=== PATIENT | male | born 1980 | race Caucasian/White ===

== ENCOUNTER → 2017-04-15 | Outpatient (CLI) | payer OTHER ==
[~2017-04-15] MED LIST: MOTRIN800 MG PO
== END | disposition home or self-care (01) ==
LOC: US 15:25 → EDBD 15:30
DX: I82.4Z1 Acute embolism and thrombosis of unspecified deep veins of right distal lower extremity (principal)

== ENCOUNTER 2019-12-24 16:14 | Inpatient (IN) | payer OTHER ==
[~2019-12-24] VITALS: Ht 185.4 cm; Wt 82.3 kg
[2019-12-24 16:31] VITALS: BP 120/7; BP 120/77
[2019-12-24 17:11] LABS: HEMATOCRIT 38.8 % (42.0-52.0); LYMPH # 0.8 10*3/uL (1.3-4.4); LYMPH % 11.9 % (27.0-41.0); MEAN CELL VOLUME 78.2 fl (80.0-94.0); MEAN CORPUSCULAR HGB CONC 35.8 g/dl (33.0-37.0); MEAN PLATELET VOLUME 10.6 fl (9.6-12.3); MONO # 0.1 10*3/uL (0.1-1.0); MONO % 2.1 % (3.0-9.0); NEUT # 5.8 10*3/uL (2.3-7.9); NEUT % 85.9 % (47.0-73.0); PLATELET COUNT AUTOMATED 287 10*3/uL (130-400); RED BLOOD COUNT 4.96 10*6/uL (4.50-5.90); RED CELL DISTRI WIDTH 12.6 % (0-14.5); WHITE BLOOD COUNT 6.7 10*3/uL (4.8-10.8)
[2019-12-24 17:31] LABS: ALBUMIN 4.3 gm/dl (3.1-4.5); ALKALINE PHOSPHATASE 37 U/L (45-117); BUN 15 mg/dl (7-24); CHLORIDE 110 mmol/L (98-107); CREATININE 0.91 mg/dL (0.70-1.30); POTASSIUM 3.7 mmol/L (3.5-5.1); SGOT/AST 35 IU/L (3-35); SGPT/ALT 55 U/L (12-78); SODIUM 138 mmol/L (136-145); TOTAL PROTEIN 7.8 gm/dL (6.4-8.2)
[2019-12-24 17:32] LABS: TROPONIN I < 0.015 ng/ml (<0.045)
[2019-12-24 18:52] VITALS: BP 118/76
--- NOTE | 2019-12-24 18:52 | NUR ---
A 39, admitted to [facility], under the services of DONAL Stoner DO with a diagnosis of SUSPECTED COVID-19 INFECTION/CHEST PAIN. Chief complaint is MULTIPLE COMPLAINTS. Patient arrived via stretcher from ER. Monitor applied. Initial assessment completed. Vital signs taken and recorded. DONAL STONER DO notified of admission to the unit. Orders received. See assessment for past medical history, medications and allergies. Patient and/or family oriented to unit. visitation policy reviewed. Clothing/patient valuable form completed. CHAS BLAND A
[2019-12-24] MEDS ORDERED: PREDNISONE20 M1 PO (20:26)
[2019-12-24] MEDS ORDERED: VENTOLIN 02.5 MG/3 M INH (20:27)
[2019-12-24] MEDS ORDERED: PROAIR HFA8.5 GM INH (20:27)
--- NOTE | 2019-12-24 22:13 | NUR ---
MESSAGE LEFT WITH TREVOR REGARDING CONSULT. AWAITING CALL BACK.
--- NOTE | 2019-12-24 22:31 | NUR ---
PATIENT IS RESTING IN BED WITH EASY AND REGULAR RESPERS ON ROOM AIR. NO C/O OR S/S OF DISTRESS NOTED AT THIS TIME. WILL CONTINUE TO MONITOR.
[2019-12-24 22:48] LABS: ARTERIAL BLOOD GAS PH 7.409 (7.35-7.45)
--- NOTE | 2019-12-24 22:48 | NUR ---
CONSULT COMPLETE FOR DR. CUEVAS.
[2019-12-25] VITALS: BP 105/65
--- NOTE | 2019-12-25 00:03 | NUR ---
CHART CHECK COMPLETE.
--- NOTE | 2019-12-25 03:37 | NUR ---
INFECTIOUS DISEASE CALLED BACK AND CONSULT COMPLETE.
[2019-12-25 05:35] LABS: ALKALINE PHOSPHATASE 35 U/L (45-117); BUN 17 mg/dl (7-24); CHLORIDE 109 mmol/L (98-107); CPK 75 U/L (39-308); POTASSIUM 3.7 mmol/L (3.5-5.1); SGOT/AST 20 IU/L (3-35); SGPT/ALT 47 U/L (12-78); SODIUM 139 mmol/L (136-145); TOTAL PROTEIN 6.9 gm/dL (6.4-8.2)
[2019-12-25 06:15] LABS: BASO % 0.3 % (0.0-1.0); EOS # 0.1 10*3/uL (0.0-0.4); EOS % 1.1 % (1.0-4.0); HEMATOCRIT 37.5 % (42.0-52.0); LYMPH # 2.6 10*3/uL (1.3-4.4); LYMPH % 36.6 % (27.0-41.0); MEAN CELL VOLUME 80.1 fl (80.0-94.0); MEAN CORPUSCULAR HGB 27.8 pg (27.0-31.0); MEAN CORPUSCULAR HGB CONC 34.7 g/dl (33.0-37.0); MONO # 0.6 10*3/uL (0.1-1.0); NEUT # 3.7 10*3/uL (2.3-7.9); NEUT % 52.9 % (47.0-73.0); PLATELET COUNT AUTOMATED 268 10*3/uL (130-400); RED BLOOD COUNT 4.68 10*6/uL (4.50-5.90); RED CELL DISTRI WIDTH 12.6 % (0-14.5)
--- NOTE | 2019-12-25 07:20 | NUR ---
0500 PATIENT AWAKENED EASILY FOR AM LAB DRAWS. PATIENT TOLERATED WELL, CALL LIGHT IS WITHIN REACH.
[2019-12-25 08:00] VITALS: BP 116/76
--- NOTE | 2019-12-25 08:32 | NUR ---
ON ASSESSMENT PATIENT IS ALERT AND ORIENTED X 3. SITTING IN BED, CONVERSING FREELY, BUT HE HAS OBVIOUS LABORED BREATHING PATTERN. HIS LUNGS DIMINISHED BUT CLEAR. HE'S ON ROOM AIR. ON QUESTIONING HE SAYS HIS SYMPTOMS STARTED EASTER FRIDAY, THAT HE'S "NEVER" HAD POSITIVE RESULT THAT HE KNOWS OF. HE HAD "EVERY SYMPTOM BUT A FEVER". PT ENCOURAGED TO DEEP BREATHE AND COUGH AND TO LIE PRONE EVERY CHANCE HE CAN. SEE ALL APPROPRIATE INTERVENTIONS.
--- NOTE | 2019-12-25 08:47 | NUR ---
Plumbing Hardware Assembler spoke to patient via phone. Patient states lives at home with his . There are 30 steps in the home. Physician: Dr. estrella Freeman in [place] [facility]: Rossy Villafana Home health services: none Patient's level of ADLs: INDEPENDENT Patient has working utilities: yes DME: needs a nebulizer Follow-up physician's appointment after d/c: will be made by the hospitalist nurse director upon discharge Does patient want to access PORTAL?: no Discharge plan discussed with patient. He lives at home with his . He is normally independent in his ADLs and ambulation. He states there are a flight of steps to go down to the bathroom and there are a flight of steps to go up to the bedroom. He states his PCP ordered him a nebulizer and he was notified prior to admission that insurance would not cover the nebulizer and the cost would be about $40. Informed he could get a nebulizer here at the hospital prior to discharge that would be about $15. Hospitalist nurse director notified. He states he does have [facility] for insurance, registration notified. When medically stable he will be discharged to home. He states his will provide transportation on discharge. MARIAJOSE DAVIS
--- NOTE | 2019-12-25 08:50 | NUR ---
Shift chart check completed.24 HR chart check completed.
--- NOTE | 2019-12-25 10:34 | NUR ---
DR RAMOS HAS VISITED.
--- NOTE | 2019-12-25 11:04 | NUR ---
DR RAMOS HAS VISITED. CHART REVIEW SHOWED A RT FEMEROL DVT 2017, ON QUESTIONING PT TOOK "A PILL FOR ABOUT 3MONTHS" FOR THAT. ON FURTHER QUESTIONING, SINCE HE COULDN'T REMEMBER THE NAME OF THE PILL HE DID NOT HAVE TO HAVE LAB WORK FOR THE PILL. ON VIDEO SCREEN NO OBVIOUS SHORTNESS OF BREATH UNTIL YOU ARE TALKING WITH HIM. A RELEASE OF INFORMATION HAS BEEN OBTAINED AND AIR DRILL OPERATOR IS CALLING [facility] TO FAX HIS RECENT VISIT RESULTS.
--- NOTE | 2019-12-25 11:29 | NUR ---
PT HAS SELF PRONED.
[2019-12-25 12:00] VITALS: BP 111/73
--- NOTE | 2019-12-25 12:38 | NUR ---
DR YANG HAS VISITED AND EXAMINED PT. REVIEW OF LABS AND ORDERS. ORDERS RECEIVED. DR RAMOS UPDATED ALSO.
--- NOTE | 2019-12-25 14:38 | NUR ---
DR CUEVAS IN TO EXAMINE PT.
--- NOTE | 2019-12-25 15:32 | NUR ---
ORAL XANAX GIVEN PER ORDER. NEW IV STARTED RT ANTECUBITAL FOR CT SCAN.
[2019-12-25 16:00] VITALS: BP 112/74
--- NOTE | 2019-12-25 16:30 | NUR ---
PT TO CT AND HAS RETURNED, ACCOMPANIED BY THE LAN SUPPORT SPECIALIST.
--- NOTE | 2019-12-25 16:53 | NUR ---
PT LYING IN BED, IN PRONE POSITION, TEXTING ON HIS PHONE.
--- NOTE | 2019-12-25 17:31 | NUR ---
SAT AT THE SIDE OF THE BED, ATE DINNER, IS BACK LYING ON HIS BELLY, TEXTING ON HIS PHONE. HAS NOT SLEPT FROM EARLIER XANAX. STILL HAS SOME "FORCED" INSPIRATIONS WITH CONVERSATION.
--- NOTE | 2019-12-25 17:43 | NUR ---
DR CUEVAS CALLED IN, UPDATE GIVEN. CTA RESULTS NOT AVAILABLE YET. ORDERS RECEIVED.
--- NOTE | 2019-12-25 17:59 | NUR ---
IV REMOVED FROM RT ANTECUBITAL PER PT REQUEST AFTER CTA DONE. ASKS "WILL I GET ANY MORE XANAX? THAT SEEMS TO HAVE HELPED." EXPLANATIONS THAT IT IS NOW ORDERED Q8HR AND HE WILL RECEIVE ONE AT BEDTIME.
--- NOTE | 2019-12-25 19:53 | NUR ---
CHART CHECK COMPLETE.
[2019-12-25 20:00] VITALS: BP 116/83
--- NOTE | 2019-12-25 20:00 | NUR ---
PATIENT IS AAOX3 RESTING IN BED WITH EASY AND REGULAR RESPERS ON ROOM AIR. WHILE ASSESSING PATIENT RESPERS BECAME MORE LABORED LIKE INSPIRATION REQUIRES MORE EFFORT. LUNGS CLEAR/DIMINISHED T/O ALL HULL. VITALS OBTAINED AND STABLE. BED IS LOW, LOCKED, AND CALL LIGHT IS WITHIN REACH. WILL CONTINUE TO MONITOR. SEE INTERVENTIONS.
--- NOTE | 2019-12-25 20:38 | NUR ---
2200 MEDICATIONS GIVEN WITH SCHEDULED XANAX. PATIENT TOLERATED WELL, CALL LIGHT IS WITHIN REACH.
--- NOTE | 2019-12-25 22:17 | NUR ---
PATIENT IS ON CELL PHONE AT THIS TIME. NO S/S OF DISTRESS NOTED. PATIENT GETTING SITUATED FOR BED.
[2019-12-26] VITALS: BP 102/56
--- NOTE | 2019-12-26 00:49 | NUR ---
PATIENT SLEEPING ON LEFT SIDE WITH NONLABORED RESPERS. CALL LIGHT IS WITHIN REACH.
--- NOTE | 2019-12-26 03:30 | NUR ---
PATIENT SLEEPING WITH WHAT APPEARS TO BE EASY AND REGULAR RESPERS ON SURVEILLANCE. CALL LIGHT IS WITHIN REACH.
--- NOTE | 2019-12-26 05:00 | NUR ---
PATIENT AWAKENS EASILY FOR 0600 MEDICATION AND AM LAB DRAW. PATIENT TOLERATED WELL. NO C/O OR S/S OF DISTRESS NOTED AT THIS TIME. CALL LIGHT IS WITHIN REACH.
[2019-12-26 06:13] LABS: HEMATOCRIT 35.8 % (42.0-52.0); MEAN CELL VOLUME 79.9 fl (80.0-94.0); MEAN CORPUSCULAR HGB 28.3 pg (27.0-31.0); MEAN CORPUSCULAR HGB CONC 35.5 g/dl (33.0-37.0); PLATELET COUNT AUTOMATED 243 10*3/uL (130-400); RED BLOOD COUNT 4.48 10*6/uL (4.50-5.90); RED CELL DISTRI WIDTH 12.8 % (0-14.5); WHITE BLOOD COUNT 4.3 10*3/uL (4.8-10.8)
[2019-12-26 06:24] LABS: ALBUMIN 3.6 gm/dl (3.1-4.5); ALKALINE PHOSPHATASE 35 U/L (45-117); BUN 19 mg/dl (7-24); CHLORIDE 109 mmol/L (98-107); CREATININE 0.94 mg/dL (0.70-1.30); POTASSIUM 3.7 mmol/L (3.5-5.1); SGOT/AST 17 IU/L (3-35); SGPT/ALT 45 U/L (12-78); SODIUM 142 mmol/L (136-145); TOTAL PROTEIN 6.1 gm/dL (6.4-8.2)
[2019-12-26 06:53] LABS: BASOPHILS 1 % (0-1); MICROCYTOSIS SLIGHT; OVALOCYTES FEW; PLATELET SUFFICIENCY NORMAL (NORMAL); TOTAL CELLS COUNTED 100 #CELLS
[2019-12-26 08:00] VITALS: BP 113/55
[2019-12-26 10:08] LABS: HEPATITIS C AB <0.1 (0.0-0.9)
[2019-12-26 12:00] VITALS: BP 103/59
[2019-12-26 16:00] VITALS: BP 107/67
[2019-12-26 20:00] VITALS: BP 115/75
--- NOTE | 2019-12-26 20:02 | NUR ---
24 HR chart check completed.
[2019-12-27] VITALS: BP 108/62
--- NOTE | 2019-12-27 02:09 | NUR ---
PATIENT RESTING WITH EYES CLOSED IN BED. RESPIRATIONS EASY AND UNLABORED. CALL LIGHT IN REACH. WILL MONITOR.
--- NOTE | 2019-12-27 04:00 | NUR ---
PATIENT RESTING WITH EYES CLOSED LAYING IN BED PRONE. RESPIRATIONS EASY AND UNLABORED. CALL LIGHT IN REACH. WILL MONITOR.
--- NOTE | 2019-12-27 06:15 | NUR ---
AM LABS DRAWN AT THIS TIME. PATIENT HAS NO COMPLAINTS. CALL LIGHT IN REACH. WILL MONITOR.
[2019-12-27 06:26] LABS: BASO % 0.7 % (0.0-1.0); EOS # 0.1 10*3/uL (0.0-0.4); EOS % 2.3 % (1.0-4.0); LYMPH # 2.2 10*3/uL (1.3-4.4); LYMPH % 50.6 % (27.0-41.0); MEAN CELL VOLUME 80.9 fl (80.0-94.0); MEAN CORPUSCULAR HGB 28.3 pg (27.0-31.0); MEAN PLATELET VOLUME 10.2 fl (9.6-12.3); MONO # 0.5 10*3/uL (0.1-1.0); MONO % 10.5 % (3.0-9.0); NEUT # 1.6 10*3/uL (2.3-7.9); NEUT % 35.7 % (47.0-73.0); PLATELET COUNT AUTOMATED 234 10*3/uL (130-400); RED BLOOD COUNT 4.45 10*6/uL (4.50-5.90); RED CELL DISTRI WIDTH 12.5 % (0-14.5); WHITE BLOOD COUNT 4.4 10*3/uL (4.8-10.8)
[2019-12-27 06:53] LABS: ALBUMIN 3.6 gm/dl (3.1-4.5); ALKALINE PHOSPHATASE 34 U/L (45-117); BUN 16 mg/dl (7-24); CHLORIDE 110 mmol/L (98-107); CHOLESTEROL 228 mg/dL (<200); HDL CHOLESTEROL 52 mg/dl (40-60); LDL CHOLESTEROL 167 mg/dL (9-159); POTASSIUM 3.8 mmol/L (3.5-5.1); SGOT/AST 15 IU/L (3-35); SGPT/ALT 40 U/L (12-78); SODIUM 142 mmol/L (136-145); TOTAL PROTEIN 6.3 gm/dL (6.4-8.2); TRIGLYCERIDES 46 mg/dl (<150); VLDL CHOLESTEROL 9 mg/dL (6-40)
--- NOTE | 2019-12-27 07:00 | NUR ---
ARRIVED ON SHIFT, REPORT RECEIVED FROM OFF GOING NURSE. ASSUMED CARE OF PATIENT.
--- NOTE | 2019-12-27 07:30 | NUR ---
INTRODUCED SELF TO PATIENT, BED IN LOW POSITIONM WHEEL LOCKS ENGAGED, SR UP X 2 FOR TURNING AND REPOSITIONING. CALL LIGHT WITHIN REACH, NO NEEDS VOICED AT THIS TIME.
[2019-12-27 08:00] VITALS: BP 118/70
--- NOTE | 2019-12-27 10:04 | NUR ---
Shift chart check completed.
--- NOTE | 2019-12-27 11:19 | NUR ---
Shift chart check completed.
[2019-12-27 12:00] VITALS: BP 128/54
[2019-12-27 16:00] VITALS: BP 118/85
--- NOTE | 2019-12-27 19:30 | NUR ---
PT RESTING IN BED. VOICES NO CONCERNS AT THIS TIME. RESPS EASY AND NON LABORED. NO S/S OF DISTRESS NOTED VSS. WHITE BOARD UPDATED. CALL LIGHT WITHIN REACH.
[2019-12-27 20:00] VITALS: BP 123/79
[2019-12-28] VITALS: BP 12/67; BP 122/67
--- NOTE | 2019-12-28 01:00 | NUR ---
Patient resting quietly with no c/o discomfort. Respirations easy and regular. Vital signs stable. No overt distress. CALL LIGHT WITHIN REACH. HISSOM,ALYCE
--- NOTE | 2019-12-28 02:10 | NUR ---
24 HR chart check completed.
--- NOTE | 2019-12-28 04:04 | NUR ---
Patient sleeping. Respirations relaxed and easy. Siderails up . [place] on. CALL LIGHT WITHIN REACH HISSOM,ALYCE
--- NOTE | 2019-12-28 05:26 | NUR ---
IN TO DRAW PTS MORNING LAB WORK. RESTING IN BED. VOICES NO CONCERNS AT THIS TIME. RESPS EASY AND NON LABORED. NO S/S OF DISTRESS NOTED. VSS. CALL LIGHT WITHIN REACH.
[2019-12-28 06:54] LABS: BASO % 0.8 % (0.0-1.0); EOS # 0.2 10*3/uL (0.0-0.4); EOS % 3.3 % (1.0-4.0); HEMATOCRIT 34.8 % (42.0-52.0); LYMPH # 2.6 10*3/uL (1.3-4.4); LYMPH % 50.3 % (27.0-41.0); MEAN CELL VOLUME 80.2 fl (80.0-94.0); MEAN CORPUSCULAR HGB 28.6 pg (27.0-31.0); MEAN CORPUSCULAR HGB CONC 35.6 g/dl (33.0-37.0); MONO # 0.5 10*3/uL (0.1-1.0); MONO % 9.7 % (3.0-9.0); NEUT # 1.8 10*3/uL (2.3-7.9); NEUT % 35.9 % (47.0-73.0); PLATELET COUNT AUTOMATED 234 10*3/uL (130-400); RED BLOOD COUNT 4.34 10*6/uL (4.50-5.90); RED CELL DISTRI WIDTH 12.5 % (0-14.5); WHITE BLOOD COUNT 5.1 10*3/uL (4.8-10.8)
--- NOTE | 2019-12-28 07:00 | NUR ---
ARRIVED ON SHIFT, REPORT RECEIVED FROM OFF GOING NURSE, ASSUMED CARE OF THIS PATIENT.
[2019-12-28 07:12] LABS: ALBUMIN 3.7 gm/dl (3.1-4.5); ALKALINE PHOSPHATASE 35 U/L (45-117); BUN 16 mg/dl (7-24); CHLORIDE 111 mmol/L (98-107); CHOLESTEROL 212 mg/dL (<200); CREATININE 0.86 mg/dL (0.70-1.30); HDL CHOLESTEROL 50 mg/dl (40-60); LDL CHOLESTEROL 152 mg/dL (9-159); SGOT/AST 22 IU/L (3-35); SGPT/ALT 46 U/L (12-78); SODIUM 142 mmol/L (136-145); TOTAL PROTEIN 6.2 gm/dL (6.4-8.2); TRIGLYCERIDES 51 mg/dl (<150); VLDL CHOLESTEROL 10 mg/dL (6-40)
--- NOTE | 2019-12-28 07:45 | NUR ---
INTRODUCED SELF TO PATIENT, BED IN LOW POSITION, WHEEL LOCKS ENGAGED, SIDERAILS UP X 2 FOR TURNING AND REPOSITIONING, CALL LIGHT WITHIN REACH, NO NEEDS VOICED AT THIS TIME.
[2019-12-28 08:00] VITALS: BP 112/77
--- NOTE | 2019-12-28 10:05 | NUR ---
Shift chart check completed.
[2019-12-28] MEDS ORDERED: ATORVASTATIN CA40 M1 PO (14:10)
[2019-12-28] MEDS ORDERED: ESCITALOPRAM OX10 MG PO (14:10)
[2019-12-28] MEDS ORDERED: BUSPAR15 MG PO (14:10)
--- NOTE | 2019-12-28 14:42 | NUR ---
Discharge instructions reviewed with patient. Patient receptive and verbalizes understanding. Reviewed new perscriptions to be picked up, scheduling follow up appointments with PCP as well as Dr. Tamayo. Removed IV, Patient wearing mask, taken out via w/c by hospital staff. TONY GALLARDO
== END 2019-12-28 14:42 | disposition home or self-care (01) | DRG 206 ==
LOC: ED 16:14 → 4NE 18:01
PROVIDERS: Internal Medicine; Internal Medicine Critical Care Medicine; ADMIT Emergency Medicine
DX: M94.0 Chondrocostal junction syndrome [Tietze] (principal); R65.10 Systemic inflammatory response syndrome (SIRS) of non-infectious origin without acute organ dysfunction; R17 Unspecified jaundice; Z20.828 Contact with and (suspected) exposure to other viral communicable diseases; D50.9 Iron deficiency anemia, unspecified; E87.8 Other disorders of electrolyte and fluid balance, not elsewhere classified; E83.41 Hypermagnesemia; R73.9 Hyperglycemia, unspecified; E78.5 Hyperlipidemia, unspecified; Z83.3 Family history of diabetes mellitus; Z79.01 Long term (current) use of anticoagulants; Z86.718 Personal history of other venous thrombosis and embolism

== ENCOUNTER → 2020-01-14 | Day surgery (SDC) | payer OTHER ==
[~2020-01-14] VITALS: Ht 185.4 cm; Wt 83.9 kg
[~2020-01-14] MED LIST changes: +ATORVASTATIN CA40 M1 PO; +BUSPAR15 MG PO; +ESCITALOPRAM OX10 MG PO; +PREDNISONE20 M1 PO; +PROAIR HFA8.5 GM INH; +VENTOLIN 02.5 MG/3 M INH; +Ventolin 02.5 MG/3 M INH
[2020-01-14 09:00] VITALS: BP 123/83
[2020-01-14 10:46] VITALS: BP 119/53
[2020-01-14 11:01] VITALS: BP 120/72
[2020-01-14 11:15] VITALS: BP 122/73
[2020-01-15 11:06] LABS: ACID FAST SPEC PROCESSING Concentration (.)
[2020-02-04 16:07] LABS: ORGANISM ID, MOLD Final report (.); RESULT 1 Irpex lacteus (.)
== END | disposition home or self-care (01) ==
LOC: SDC 01-13 12:30
PROVIDERS: Internal Medicine Critical Care Medicine
DX: R05 Cough (principal); J45.20 Mild intermittent asthma, uncomplicated; E78.5 Hyperlipidemia, unspecified; Z98.890 Other specified postprocedural states; Z79.899 Other long term (current) drug therapy; Z83.3 Family history of diabetes mellitus